=== PATIENT | female | born 1990 ===

== ENCOUNTER 2017-10-11 09:11 | Emergency (ER) | payer MEDICAID, OTHER ==
[2017-10-11 11:44] VITALS: O2SAT 98
--- NOTE | 2017-10-11 11:51 | ED PDOC ---
HPI: General Adult Time Seen by Provider: 10/11/17 09:47 Chief Complaint (Nursing): Flu-like Symptoms Chief Complaint (Provider): body aches History Per: Patient, [employer] ([place] [id number]) History/Exam Limitations: no limitations Onset/Duration Of Symptoms: Hrs (approx 5) Current Symptoms Are (Timing): Still Present Additional Complaint(s): 27yo female c/o body aches and cough since early this morning, took a cough medicine from [facility] (not available for review of medication in ED) and stated aftewards felt itchy and dizzy. No syncope. Denies fever, SOB, chest pain or hemoptysis. Denies headache or sore throat. Had +chills this morning with diffuse body aches. Had mild rash to chest after taking cough medicine but since mostly resolved. Past Medical History Reviewed: Historical Data, Nursing Documentation, Vital Signs Vital Signs: Last Vital Signs Temp 97 F L 10/11/17 12:35 Pulse 78 10/11/17 12:35 Resp 18 10/11/17 12:35 BP 120/78 10/11/17 12:35 Pulse Ox 98 10/11/17 12:35 - Medical History PMH: No Chronic Diseases - Surgical History Surgical History: No Surg Hx - Family History Family History: States: Unknown Family Hx - Social History Current smoker - smoking cessation education provided: No - Home Medications Home Medications: Ambulatory Orders Medication Instructions Recorded Cephalexin [Keflex] 250 mg PO BID #10 capsule 10/11/17 Ibuprofen [Motrin Tab] 600 mg PO Q6 PRN #15 tab 10/11/17 Oseltamivir [Tamiflu] 75 mg PO BID #10 cap 10/11/17 - Allergies Allergies/Adverse Reactions: Allergies Allergy/AdvReac Type Severity Reaction Status Date / Time No Known Allergies Allergy Verified 10/11/17 10:21 Review of Systems Constitutional: Positive for: Chills, Malaise. Negative for: Fever ENT: Negative for: Mouth Swelling, Throat Pain Cardiovascular: Negative for: Chest Pain, Palpitations Respiratory: Positive for: Cough. Negative for: Shortness of Breath Gastrointestinal: Negative for: Nausea, Vomiting, Abdominal Pain Genitourinary Female: Negative for: Dysuria, Incontinence, Vaginal Bleeding Musculoskeletal: Positive for: Other (body aches). Negative for: Neck Pain Skin: Positive for: Rash. Negative for: Lesions, Jaundice Neurological: Positive for: Dizziness. Negative for: Weakness, Incoordination, Change in Speech, Headache Physical Exam - Reviewed Nursing Documentation Reviewed: Yes Vital Signs Reviewed: Yes - Physical Exam Appears: Positive for: Well, Non-toxic, No Acute Distress Head Exam: Positive for: ATRAUMATIC, NORMAL INSPECTION, NORMOCEPHALIC Skin: Positive for: Normal Color, Warm, Rash (faint erythematous rash to chest which mostly resolved over course of interview/exam) Eye Exam: Positive for: Normal appearance, EOMI, PERRL. Negative for: Periorbital tenderness ENT: Positive for: Normal ENT Inspection. Negative for: Pharyngeal Erythema, Tonsillar Exudate, Tonsillar Swelling Neck: Positive for: Normal, Painless ROM, Supple Cardiovascular/Chest: Positive for: Regular Rate, Rhythm. Negative for: Tachycardia Respiratory: Positive for: Normal Breath Sounds. Negative for: Decreased Breath Sounds Pulses-Radial (L): 3+/4+ Pulses-Radial (R): 3+/4+ Gastrointestinal/Abdominal: Positive for: Bowel Sounds, Soft. Negative for: Tenderness Back: Positive for: Normal Inspection Extremity: Positive for: Normal ROM. Negative for: Deformity, Swelling Neurologic/Psych: Positive for: Alert, Oriented, Gait (normal). Negative for: Motor/Sensory Deficits - ECG O2 Sat by Pulse Oximetry: 98 Medical Decision Making Medical Decision Making: Upreg neg UDip TR leuks Possible allergic reaction from ?cough medicine from [facility]- told to avoid Benadryl given PO and pt monitored 2+ hrs, improved Will treat empiric UTI and offered tamiflu given body aches and reports fever. Disposition - Clinical Impression Clinical Impression: Influenza-like symptoms, UTI (urinary tract infection) - Patient ED Disposition Is Patient to be Admitted: No Counseled Patient/Family Regarding: Studies Performed, Diagnosis, Need For Followup, Rx Given - Disposition [facility]errals: [facility] [Outside] Disposition: Routine/Home Disposition Time: 11:54 Condition: STABLE Additional Instructions: Return to ER for any worse or new symptoms. Drink plenty of fluids. Return to ER for any new or worsening symptoms. Prescriptions: Cephalexin [Keflex] 250 mg PO BID #10 capsule Ibuprofen [Motrin Tab] 600 mg PO Q6 PRN #15 tab PRN Reason: Pain, Moderate (4-7) Oseltamivir [Tamiflu] 75 mg PO BID #10 cap Instructions: Urinary Tract Infection in Women (DC), Influenza (ED) Forms: [facility] (Slovak) Print Language: BENGALI
[2017-10-11 12:36] VITALS: BP 120/78; PULSE 78; RESP 18; TEMP 97
--- NOTE | 2017-10-11 17:57 | RAD ---
HISTORY: cough JAVON COMPARISON: No prior. TECHNIQUE: Chest PA and lateral FINDINGS: LUNGS: No active pulmonary disease. PLEURA: No significant pleural effusion identified. No pneumothorax apparent. CARDIOVASCULAR: Normal. OSSEOUS STRUCTURES: No significant abnormalities. VISUALIZED UPPER ABDOMEN: Normal. OTHER FINDINGS: None. IMPRESSION: No acute cardiopulmonary disease appreciated.
== END 2017-10-11 12:36 | disposition home or self-care (01) ==
LOC: H.ER 09:11
DX: M79.1 Myalgia (principal); N39.0 Urinary tract infection, site not specified